=== PATIENT | female | born 1995 | race Two or more races ===

== ENCOUNTER 2022-07-03 16:34 | Inpatient (IN) | payer MEDICAID ==
[~2022-07-03] VITALS: Ht 170.2 cm; Wt 64.0 kg
[2022-07-03] MEDS ORDERED: INFLUENZA VIRUS VACCINE QVS 2022-23 (6MO+)/PF 60 MCG/0.5 ML SYRINGE IM. ONE (20:15)
[2022-07-03 20:41] VITALS: BP 135/66
[2022-07-03] MEDS: ZOLPIDEM TARTRATE 10 MG TABLET PO PRN (21:22)
[2022-07-03] MEDS: HALOPERIDOL 5 MG TABLET PO PRN (21:22)
[2022-07-04 07:11] LABS: GLUCOMETER DEV NAME(LOC) POC.BV
[2022-07-04 08:46] VITALS: BP 103/63
[2022-07-04] MEDS ORDERED: MAGNESIUM HYDROXIDE SUSPENSION 30 ML UDCUP PO PRN (09:45)
[2022-07-04] MEDS ORDERED: NICOTINE 14 MG/24 HOUR PATCH TD PRN (09:45)
[2022-07-04] MEDS ORDERED: PETROLATUM,WHITE 28 GM JELLY TP PRN (09:45)
[2022-07-04] MEDS ORDERED: DOCUSATE SODIUM 100 MG CAPSULE PO PRN (09:45)
[2022-07-04] MEDS ORDERED: LOPERAMIDE HCL 2 MG CAPSULE PO PRN (09:45)
[2022-07-04] MEDS ORDERED: MAG HYDROX/AL HYDROX/SIMETH ES 30 ML SUSPENSION UDCUP PO PRN (09:45)
[2022-07-04] MEDS ORDERED: ONDANSETRON HCL 4 MG TABLET PO PRN (09:45)
[2022-07-04] MEDS ORDERED: CloNIDine HCL 0.1 MG TABLET PO PRN (09:45)
[2022-07-04] MEDS ORDERED: IBUPROFEN 400 MG TABLET PO PRN (09:45)
[2022-07-04] MEDS ORDERED: ALBUTEROL SULFATE HFA 90 MCG/PUFF 8 GM INHALER IH PRN (09:45)
[2022-07-04] MEDS ORDERED: GuaiFENesin/D-METHORPHAN [SUGAR-FREE] 200-20MG/10 ML SYRUP UDCUP PO PRN (09:45)
[2022-07-04] MEDS ORDERED: ACETAMINOPHEN 325 MG TABLET PO PRN (09:45)
[2022-07-04] MEDS: NICOTINE 14 MG/24 HOUR PATCH TD SCH (09:51)
[2022-07-04] MEDS: LORazepam 2 MG TABLET PO PRN (16:39)
[2022-07-04] MEDS: LURASIDONE HCL 40 MG TABLET PO SCH (16:39)
[2022-07-04 20:03] VITALS: BP 113/60
[2022-07-04] MEDS: ZOLPIDEM TARTRATE 10 MG TABLET PO PRN (22:15)
[2022-07-05 07:44] LABS: APPEARANCE,URINE CLEAR (CLEAR); BILIRUBIN,URINE NEGATIVE (NEGATIVE); GLUCOSE, URINE (UA) NEGATIVE (NEGATIVE); KETONES,URINE NEGATIVE (NEGATIVE); LEUKOCYTE ESTERASE ,URINE NEGATIVE (NEGATIVE); NITRATE,URINE NEGATIVE (NEGATIVE); OCCULT BLOOD,URINE LARGE (NEGATIVE); PROTEIN,URINE 30-70 mg/dL (NEGATIVE); SPECIFIC GRAVITIY, URINE 1.027 (1.003-1.030); UROBILINOGEN,URINE <=1.0 mg/dL (<=1.0)
[2022-07-05 07:49] LABS: AMPHET/METH SCREEN,URINE NEGATIVE (NEGATIVE); BARBITURATE SCREEN, URINE NEGATIVE (NEGATIVE); BENZODIAZEPINES SCREEN,URINE NEGATIVE (NEGATIVE); CANNABINOID SCREEN,URINE NEGATIVE (NEGATIVE); COCAINE SCREEN,URINE NEGATIVE (NEGATIVE); METHADONE SCREEN, URINE NEGATIVE (NEGATIVE); OPIATE SCREEN,URINE NEGATIVE (NEGATIVE)
[2022-07-05 07:58] LABS: PHENCYCLIDINE SCREEN,URINE NEGATIVE (NEGATIVE)
[2022-07-05] MEDS: NICOTINE 14 MG/24 HOUR PATCH TD SCH (08:21)
[2022-07-05] MEDS: LORazepam 2 MG TABLET PO PRN ×2 (08:22→18:20)
[2022-07-05 09:04] VITALS: BP 111/69
[2022-07-05 09:14] VITALS: BP 111/69
[2022-07-05 09:20] LABS: BACTERIA,URINE None Seen /HPF (None Seen); RBC,URINE 26-50 /HPF (0-2); WBC,URINE None Seen /HPF (0-5)
[2022-07-05 09:21] LABS: SQUAMOUS EPITHELIAL CELL,UR Few /LPF (None Seen)
[2022-07-05] MEDS: LURASIDONE HCL 40 MG TABLET PO SCH (16:05)
[2022-07-05] MEDS: ZOLPIDEM TARTRATE 10 MG TABLET PO PRN (20:55)
[2022-07-06 00:30] VITALS: BP 123/67
[2022-07-06] MEDS: NICOTINE 14 MG/24 HOUR PATCH TD SCH (08:10)
[2022-07-06 08:11] VITALS: BP 118/74
[2022-07-06] MEDS: LORazepam 2 MG TABLET PO PRN (16:19)
[2022-07-06] MEDS: LURASIDONE HCL 40 MG TABLET PO SCH (16:19)
[2022-07-06 20:30] VITALS: BP 123/82
[2022-07-07] MEDS: NICOTINE 14 MG/24 HOUR PATCH TD SCH (09:37)
[2022-07-07 09:39] VITALS: BP 105/63
[2022-07-07] MEDS: LORazepam 2 MG TABLET PO PRN (16:13)
[2022-07-07] MEDS: LURASIDONE HCL 40 MG TABLET PO SCH (17:20)
[2022-07-07 21:15] VITALS: BP 133/63
[2022-07-08] MEDS: NICOTINE 14 MG/24 HOUR PATCH TD SCH (08:34)
[2022-07-08] MEDS: LORazepam 2 MG TABLET PO PRN ×2 (08:34→16:54)
[2022-07-08 08:52] VITALS: BP 108/64
[2022-07-08] MEDS: DIVALPROEX SODIUM 500 MG DR TABLET PO SCH ×2 (10:16→20:56)
[2022-07-08] MEDS: LURASIDONE HCL 60 MG TABLET PO SCH (16:53)
[2022-07-08 21:47] VITALS: BP 112/76
[2022-07-09] MEDS: LORazepam 2 MG TABLET PO PRN ×2 (08:12→16:52)
[2022-07-09] MEDS: DIVALPROEX SODIUM 500 MG DR TABLET PO SCH ×2 (08:12→20:17)
[2022-07-09] MEDS: NICOTINE 14 MG/24 HOUR PATCH TD SCH (08:12)
[2022-07-09 08:13] VITALS: BP 118/69
[2022-07-09] MEDS: LURASIDONE HCL 60 MG TABLET PO SCH (16:51)
[2022-07-10 07:11] VITALS: BP 116/74
[2022-07-10 08:18] VITALS: BP 105/63
[2022-07-10] MEDS: DIVALPROEX SODIUM 500 MG DR TABLET PO SCH ×2 (09:00→20:53)
[2022-07-10] MEDS: NICOTINE 14 MG/24 HOUR PATCH TD SCH (09:07)
[2022-07-10] MEDS: LORazepam 2 MG TABLET PO PRN ×2 (12:30→20:37)
[2022-07-10] MEDS: LURASIDONE HCL 60 MG TABLET PO SCH (16:58)
[2022-07-10 20:00] VITALS: BP 106/61
[2022-07-10] MEDS: ZOLPIDEM TARTRATE 10 MG TABLET PO PRN (20:36)
[2022-07-11] MEDS: DIVALPROEX SODIUM 500 MG DR TABLET PO SCH ×3 (08:13→21:00)
[2022-07-11] MEDS: NICOTINE 14 MG/24 HOUR PATCH TD SCH (08:13)
[2022-07-11 11:07] VITALS: BP 98/62
[2022-07-11] MEDS: LORazepam 2 MG TABLET PO PRN (16:45)
[2022-07-11] MEDS: LURASIDONE HCL 60 MG TABLET PO SCH (16:45)
[2022-07-11] MEDS: ZOLPIDEM TARTRATE 10 MG TABLET PO PRN (20:27)
[2022-07-11 20:43] VITALS: BP 105/78
[2022-07-11 21:41] LABS: GLUCOMETER DEV NAME(LOC) POC.BV
[2022-07-12] MEDS: DIVALPROEX SODIUM 500 MG DR TABLET PO SCH ×2 (09:00→21:00)
[2022-07-12] MEDS: NICOTINE 14 MG/24 HOUR PATCH TD SCH (09:44)
[2022-07-12 11:14] VITALS: BP 109/54
[2022-07-12] MEDS: LURASIDONE HCL 60 MG TABLET PO SCH (16:59)
[2022-07-12 20:14] VITALS: BP 117/70
[2022-07-13] MEDS: DIVALPROEX SODIUM 500 MG DR TABLET PO SCH ×2 (08:10→21:00)
[2022-07-13] MEDS: NICOTINE 14 MG/24 HOUR PATCH TD SCH (08:11)
[2022-07-13 08:17] VITALS: BP 105/73
[2022-07-13] MEDS: LORazepam 2 MG TABLET PO PRN (11:37)
[2022-07-13] MEDS: LURASIDONE HCL 60 MG TABLET PO SCH (16:43)
[2022-07-13 20:03] VITALS: BP 112/75
[2022-07-14 08:00] VITALS: BP 100/65
[2022-07-14] MEDS: DIVALPROEX SODIUM 500 MG DR TABLET PO SCH ×2 (09:00→20:49)
[2022-07-14] MEDS: LORazepam 2 MG TABLET PO PRN (09:10)
[2022-07-14] MEDS: NICOTINE 14 MG/24 HOUR PATCH TD SCH (09:10)
[2022-07-14] MEDS: LURASIDONE HCL 60 MG TABLET PO SCH (16:29)
[2022-07-14] MEDS: BACITRACIN 28 GM OINTMENT TP SCH (19:11)
[2022-07-14 20:10] VITALS: BP 104/76
[2022-07-15 08:40] VITALS: BP 105/60
[2022-07-15] MEDS: DIVALPROEX SODIUM 500 MG DR TABLET PO SCH ×2 (08:51→20:41)
[2022-07-15] MEDS: NICOTINE 14 MG/24 HOUR PATCH TD SCH (08:52)
[2022-07-15] MEDS: BACITRACIN 28 GM OINTMENT TP SCH ×2 (08:54→16:43)
[2022-07-15] MEDS: LURASIDONE HCL 60 MG TABLET PO SCH (16:43)
[2022-07-15] MEDS: LORazepam 2 MG TABLET PO PRN (19:43)
[2022-07-15 20:35] VITALS: BP 118/76
[2022-07-16] MEDS: DIVALPROEX SODIUM 500 MG DR TABLET PO SCH ×3 (08:17→20:47)
[2022-07-16] MEDS: NICOTINE 14 MG/24 HOUR PATCH TD SCH (08:18)
[2022-07-16] MEDS: LORazepam 2 MG TABLET PO PRN ×2 (08:19→12:52)
[2022-07-16 08:42] VITALS: BP 113/73
[2022-07-16] MEDS: BACITRACIN 28 GM OINTMENT TP SCH ×2 (09:43→17:13)
[2022-07-16] MEDS: LURASIDONE HCL 60 MG TABLET PO SCH (17:13)
[2022-07-16 20:31] VITALS: BP 101/62
[2022-07-17 08:09] VITALS: BP 105/62
[2022-07-17] MEDS: BACITRACIN 28 GM OINTMENT TP SCH ×2 (09:05→17:03)
[2022-07-17] MEDS: DIVALPROEX SODIUM 500 MG DR TABLET PO SCH (09:05)
[2022-07-17] MEDS: NICOTINE 14 MG/24 HOUR PATCH TD SCH (09:29)
[2022-07-17] MEDS: LURASIDONE HCL 80 MG TABLET PO SCH (17:07)
[2022-07-17] MEDS: LORazepam 2 MG TABLET PO PRN (19:48)
[2022-07-17 20:05] VITALS: BP 108/77
[2022-07-17] MEDS: ZOLPIDEM TARTRATE 10 MG TABLET PO PRN (20:54)
[2022-07-18 08:06] LABS: GLUCOMETER DEV NAME(LOC) POC.BV
[2022-07-18 08:35] VITALS: BP 106/60
[2022-07-18] MEDS: NICOTINE 14 MG/24 HOUR PATCH TD SCH (08:59)
[2022-07-18] MEDS: BACITRACIN 28 GM OINTMENT TP SCH ×2 (09:00→17:31)
[2022-07-18 16:15] VITALS: BP 137/88
[2022-07-18] MEDS: LORazepam 2 MG TABLET PO PRN (17:31)
[2022-07-18] MEDS: LURASIDONE HCL 80 MG TABLET PO SCH (17:31)
[2022-07-18 20:05] VITALS: BP 134/85
[2022-07-19 08:25] VITALS: BP 108/67
[2022-07-19] MEDS: NICOTINE 14 MG/24 HOUR PATCH TD SCH (08:38)
[2022-07-19] MEDS: LORazepam 2 MG TABLET PO PRN ×2 (08:38→16:51)
[2022-07-19] MEDS: BACITRACIN 28 GM OINTMENT TP SCH ×2 (08:46→16:55)
[2022-07-19] MEDS: LURASIDONE HCL 80 MG TABLET PO SCH (16:51)
[2022-07-19 20:41] VITALS: BP 122/78
[2022-07-20 08:29] VITALS: BP 99/68
[2022-07-20] MEDS: BACITRACIN 28 GM OINTMENT TP SCH ×2 (09:06→17:00)
[2022-07-20] MEDS: NICOTINE 14 MG/24 HOUR PATCH TD SCH (09:07)
[2022-07-20] MEDS: LURASIDONE HCL 80 MG TABLET PO SCH (16:59)
[2022-07-20 17:08] VITALS: BP 126/74
[2022-07-20] MEDS: LORazepam 2 MG TABLET PO PRN (17:13)
[2022-07-20 20:38] VITALS: BP 126/74
[2022-07-21] MEDS: NICOTINE 14 MG/24 HOUR PATCH TD SCH (08:55)
[2022-07-21 09:33] VITALS: BP 107/73
[2022-07-21] MEDS: BACITRACIN 28 GM OINTMENT TP SCH ×2 (09:50→16:39)
[2022-07-21] MEDS: LORazepam 2 MG TABLET PO PRN (09:51)
[2022-07-21] MEDS: LURASIDONE HCL 80 MG TABLET PO SCH (16:47)
[2022-07-21 20:49] VITALS: BP 120/73
[2022-07-22] MEDS: BACITRACIN 28 GM OINTMENT TP SCH ×2 (08:32→16:32)
[2022-07-22] MEDS: NICOTINE 14 MG/24 HOUR PATCH TD SCH (08:33)
[2022-07-22 09:25] VITALS: BP 120/70
[2022-07-22] MEDS: LORazepam 2 MG TABLET PO PRN (09:46)
[2022-07-22] MEDS: HALOPERIDOL 5 MG TABLET PO PRN (09:46)
[2022-07-22] MEDS: LURASIDONE HCL 60 MG TABLET PO SCH (16:46)
[2022-07-22 20:50] VITALS: BP 105/68
[2022-07-23 09:12] VITALS: BP 109/66
[2022-07-23] MEDS: NICOTINE 14 MG/24 HOUR PATCH TD SCH (09:43)
[2022-07-23] MEDS: BACITRACIN 28 GM OINTMENT TP SCH ×2 (09:44→17:19)
[2022-07-23] MEDS: LORazepam 2 MG TABLET PO PRN (10:08)
[2022-07-23] MEDS: HALOPERIDOL 5 MG TABLET PO PRN (10:08)
[2022-07-23] MEDS: LURASIDONE HCL 60 MG TABLET PO SCH (17:19)
[2022-07-24] MEDS: NICOTINE 14 MG/24 HOUR PATCH TD SCH (09:11)
[2022-07-24] MEDS: BACITRACIN 28 GM OINTMENT TP SCH ×2 (09:12→17:03)
[2022-07-24 09:17] VITALS: BP 104/76
[2022-07-24] MEDS: HALOPERIDOL 5 MG TABLET PO PRN (12:20)
[2022-07-24] MEDS: LORazepam 2 MG TABLET PO PRN (12:20)
[2022-07-24] MEDS: LURASIDONE HCL 60 MG TABLET PO SCH (17:03)
[2022-07-24 20:05] VITALS: BP 100/60
[2022-07-25 08:23] VITALS: BP 107/63
[2022-07-25] MEDS: LORazepam 2 MG TABLET PO PRN (08:54)
[2022-07-25] MEDS: NICOTINE 14 MG/24 HOUR PATCH TD SCH (08:54)
[2022-07-25] MEDS: BACITRACIN 28 GM OINTMENT TP SCH (08:57)
[2022-07-25] MEDS: LURASIDONE HCL 60 MG TABLET PO SCH (16:45)
[2022-07-25 21:20] VITALS: BP 102/71
[2022-07-26] MEDS: NICOTINE 14 MG/24 HOUR PATCH TD SCH (08:21)
[2022-07-26] MEDS: LORazepam 2 MG TABLET PO PRN (09:44)
[2022-07-26 11:30] VITALS: BP 102/70
[2022-07-26] MEDS: LURASIDONE HCL 60 MG TABLET PO SCH (16:47)
[2022-07-26 17:56] LABS: GLUCOMETER DEV NAME(LOC) POC.BV
[2022-07-26 20:31] LABS: GLUCOMETER DEV NAME(LOC) POC.BV
[2022-07-26 22:12] VITALS: BP 122/63
[2022-07-27] MEDS: LORazepam 2 MG TABLET PO PRN (08:37)
[2022-07-27] MEDS: NICOTINE 14 MG/24 HOUR PATCH TD SCH (08:38)
[2022-07-27 09:13] VITALS: BP 104/69
[2022-07-27] MEDS: LURASIDONE HCL 60 MG TABLET PO SCH (17:09)
[2022-07-27 21:03] VITALS: BP 101/68
[2022-07-28] MEDS: NICOTINE 14 MG/24 HOUR PATCH TD SCH (09:18)
[2022-07-28 09:50] VITALS: BP 106/76
[2022-07-28] MEDS: LORazepam 2 MG TABLET PO PRN (13:06)
[2022-07-28] MEDS ORDERED: LURA60TA4 PO (16:16)
[2022-07-28] MEDS: LURASIDONE HCL 60 MG TABLET PO SCH (16:39)
== END 2022-07-28 18:39 | disposition home or self-care (01) | DRG 750 ==
LOC: B3A 18:51 → B2S 07-14 17:05
PROVIDERS: ADMIT Psychiatry & Neurology Psychiatry; ATTEND Psychiatry & Neurology Psychiatry
DX: F20.0 Paranoid schizophrenia (principal); R45.851 Suicidal ideations; Z91.199 Patient's noncompliance with other medical treatment and regimen due to unspecified reason; F15.10 Other stimulant abuse, uncomplicated; F14.10 Cocaine abuse, uncomplicated; F10.10 Alcohol abuse, uncomplicated; Y90.9 Presence of alcohol in blood, level not specified; G47.00 Insomnia, unspecified; R31.9 Hematuria, unspecified; Z28.21 Immunization not carried out because of patient refusal
CPT/HCPCS: 80307; 81001; 84703; 87081; Q9967

== ENCOUNTER 2022-07-30 09:59 | Inpatient (IN) | payer MEDICAID, OTHER ==
[~2022-07-30] VITALS: Ht 167.6 cm; Wt 64.0 kg
[~2022-07-30 09:59] MED LIST: LURA60TA4 PO
[2022-07-30] MEDS ORDERED: LORazepam 1 MG TABLET PO ONE (14:30)
[2022-07-30] MEDS ORDERED: ZOLPIDEM TARTRATE 10 MG TABLET PO PRN (14:30)
[2022-07-30] MEDS ORDERED: HALOPERIDOL 5 MG TABLET PO ONE (14:30)
[2022-07-30] MEDS ORDERED: DiphenhydrAMINE HCL 25 MG CAPSULE PO ONE (14:30)
[2022-07-30 16:38] LABS: COVID AG,FIA SOURCE NASAL SWAB
[2022-07-30 18:14] VITALS: BP 105/60
[2022-07-30 21:42] VITALS: BP 90/54
[2022-07-31 08:00] VITALS: BP 124/71
[2022-07-31] MEDS ORDERED: ACETAMINOPHEN 325 MG TABLET PO PRN (09:30)
[2022-07-31] MEDS ORDERED: MAG HYDROX/AL HYDROX/SIMETH ES 30 ML SUSPENSION UDCUP PO PRN (09:30)
[2022-07-31] MEDS ORDERED: IBUPROFEN 400 MG TABLET PO PRN (09:30)
[2022-07-31] MEDS ORDERED: LOPERAMIDE HCL 2 MG CAPSULE PO PRN (09:30)
[2022-07-31] MEDS ORDERED: ALBUTEROL SULFATE HFA 90 MCG/PUFF 8 GM INHALER IH PRN (09:30)
[2022-07-31] MEDS ORDERED: PETROLATUM,WHITE 28 GM JELLY TP PRN (09:30)
[2022-07-31] MEDS ORDERED: NICOTINE 14 MG/24 HOUR PATCH TD PRN (09:30)
[2022-07-31] MEDS ORDERED: ONDANSETRON HCL 4 MG TABLET PO PRN (09:30)
[2022-07-31] MEDS ORDERED: DOCUSATE SODIUM 100 MG CAPSULE PO PRN (09:30)
[2022-07-31] MEDS ORDERED: CloNIDine HCL 0.1 MG TABLET PO PRN (09:30)
[2022-07-31] MEDS ORDERED: MAGNESIUM HYDROXIDE SUSPENSION 30 ML UDCUP PO PRN (09:30)
[2022-07-31] MEDS ORDERED: GuaiFENesin/D-METHORPHAN [SUGAR-FREE] 200-20MG/10 ML SYRUP UDCUP PO PRN (09:30)
[2022-07-31] MEDS: OLANZapine 5 MG RAPDIS TABLET PO SCH ×2 (11:58→21:00)
[2022-07-31 16:14] VITALS: BP 117/49
[2022-08-01] MEDS: OLANZapine 5 MG RAPDIS TABLET PO SCH ×2 (08:07→21:00)
[2022-08-01 08:43] VITALS: BP 95/69
[2022-08-01] MEDS: LORazepam 2 MG TABLET PO PRN (09:41)
[2022-08-01 16:12] VITALS: BP 102/64
[2022-08-01 20:56] VITALS: BP 95/59
[2022-08-02] MEDS: OLANZapine 5 MG RAPDIS TABLET PO SCH ×2 (08:19→20:50)
[2022-08-02 10:11] VITALS: BP 113/60
[2022-08-02] MEDS: LORazepam 2 MG TABLET PO PRN (10:52)
[2022-08-02 16:41] VITALS: BP 125/60
[2022-08-03 09:00] VITALS: BP 107/63
[2022-08-03] MEDS: OLANZapine 5 MG RAPDIS TABLET PO SCH ×2 (09:57→21:04)
[2022-08-03 17:03] VITALS: BP 127/60
[2022-08-03 21:53] VITALS: BP 130/73
[2022-08-04 05:33] LABS: APPEARANCE,URINE CLEAR (CLEAR); BILIRUBIN,URINE NEGATIVE (NEGATIVE); GLUCOSE, URINE (UA) NEGATIVE (NEGATIVE); KETONES,URINE NEGATIVE (NEGATIVE); LEUKOCYTE ESTERASE ,URINE NEGATIVE (NEGATIVE); NITRATE,URINE NEGATIVE (NEGATIVE); OCCULT BLOOD,URINE TRACE (NEGATIVE); PH,URINE 5.5 (5.0-8.0); PROTEIN,URINE NEGATIVE (NEGATIVE); SPECIFIC GRAVITIY, URINE 1.015 (1.003-1.030); UROBILINOGEN,URINE <=1.0 mg/dL (<=1.0)
[2022-08-04 05:39] LABS: AMPHET/METH SCREEN,URINE NEGATIVE (NEGATIVE); BARBITURATE SCREEN, URINE NEGATIVE (NEGATIVE); BENZODIAZEPINES SCREEN,URINE NEGATIVE (NEGATIVE); CANNABINOID SCREEN,URINE NEGATIVE (NEGATIVE); COCAINE SCREEN,URINE NEGATIVE (NEGATIVE); METHADONE SCREEN, URINE NEGATIVE (NEGATIVE); OPIATE SCREEN,URINE NEGATIVE (NEGATIVE); PHENCYCLIDINE SCREEN,URINE NEGATIVE (NEGATIVE)
[2022-08-04 05:42] LABS: BACTERIA,URINE None Seen /HPF (None Seen); RBC,URINE None Seen /HPF (0-2); SQUAMOUS EPITHELIAL CELL,UR None Seen /LPF (None Seen); WBC,URINE None Seen /HPF (0-5)
[2022-08-04] MEDS: OLANZapine 5 MG RAPDIS TABLET PO SCH ×2 (08:11→21:00)
[2022-08-04] MEDS: QUEtiapine FUMARATE 100 MG TABLET PO PRN (10:13)
[2022-08-04] MEDS ORDERED: HALOPERIDOL LACTATE 5 MG/ML VIAL ONE (11:15)
[2022-08-04] MEDS ORDERED: HALOPERIDOL LACTATE 5 MG/ML VIAL IM ONE (11:15)
[2022-08-04] MEDS ORDERED: DiphenhydrAMINE HCL 50 MG/ML VIAL IM ONE (11:15)
[2022-08-04] MEDS ORDERED: DiphenhydrAMINE HCL 50 MG/ML VIAL ONE (11:15)
[2022-08-04] MEDS ORDERED: LORazepam 2 MG/ML VIAL ONE (11:15)
[2022-08-04] MEDS ORDERED: LORazepam 2 MG/ML VIAL IM ONE (11:15)
[2022-08-05 08:30] VITALS: BP 110/60
[2022-08-05] MEDS: OLANZapine 5 MG RAPDIS TABLET PO SCH ×2 (08:31→20:42)
[2022-08-05 16:12] VITALS: BP 104/68
[2022-08-06 07:30] LABS: COVID AG,FIA SOURCE NASAL SWAB
[2022-08-06 08:15] VITALS: BP 101/59
[2022-08-06] MEDS: OLANZapine 5 MG RAPDIS TABLET PO SCH ×2 (08:44→20:34)
[2022-08-06 16:06] VITALS: BP 98/60
[2022-08-06 20:30] VITALS: BP 142/72
[2022-08-07 08:24] VITALS: BP 115/69
[2022-08-07] MEDS: LORazepam 2 MG TABLET PO PRN (08:30)
[2022-08-07] MEDS: OLANZapine 5 MG RAPDIS TABLET PO SCH ×2 (08:30→20:32)
[2022-08-07 16:15] VITALS: BP 107/70
[2022-08-07] MEDS: QUEtiapine FUMARATE 100 MG TABLET PO PRN (16:45)
[2022-08-07 21:05] VITALS: BP 90/60
[2022-08-08] MEDS: OLANZapine 5 MG RAPDIS TABLET PO SCH ×2 (08:21→20:33)
[2022-08-08 08:35] VITALS: BP 128/62
[2022-08-08] MEDS: LORazepam 2 MG TABLET PO PRN (09:48)
[2022-08-08 16:09] VITALS: BP 92/60
[2022-08-08 21:45] VITALS: BP 120/73
[2022-08-09 08:46] VITALS: BP 107/57
[2022-08-09] MEDS: OLANZapine 5 MG RAPDIS TABLET PO SCH ×2 (09:14→20:21)
[2022-08-09 17:42] VITALS: BP 106/65
[2022-08-09 20:48] VITALS: BP 110/63
[2022-08-10] MEDS: OLANZapine 5 MG RAPDIS TABLET PO SCH (08:38)
[2022-08-10 09:15] VITALS: BP 118/76
[2022-08-10] MEDS ORDERED: OLAN5TAB94 PO (15:02)
[2022-08-10] MEDS ORDERED: OLAN7.5T22 PO (16:55)
== END 2022-08-10 15:53 | disposition home or self-care (01) | DRG 750 ==
LOC: EMS 10:03 → 3EI 14:59 → 3EC 08-04 14:24
PROVIDERS: ADMIT Psychiatry & Neurology Psychiatry; ATTEND Psychiatry & Neurology Child & Adolescent Psychiatry
DX: F25.1 Schizoaffective disorder, depressive type (principal); I95.9 Hypotension, unspecified; F95.2 Tourette's disorder; G47.00 Insomnia, unspecified; F10.10 Alcohol abuse, uncomplicated; F15.10 Other stimulant abuse, uncomplicated; F41.9 Anxiety disorder, unspecified; Z59.00 Homelessness unspecified; Z87.891 Personal history of nicotine dependence; Z91.010 Allergy to peanuts; Z79.899 Other long term (current) drug therapy
CPT/HCPCS: 80307; 81001; 87081; 99285; J1200; J1630; J2060